=== PATIENT | female | born 1955 | race Two or more races ===

== ENCOUNTER → 2020-05-02 | Outpatient (CLI) | payer BC, MEDICARE ==
[~2020-05-02] MED LIST: ALBUTEROL SULFATE 0.083% NEB 2.5 MG/3 ML AMPUL NEB ONE
== END ==
LOC: RT 08:11
PROVIDERS: ATTEND Physician Assistant
DX: J44.9 Chronic obstructive pulmonary disease, unspecified (principal); R06.02 Shortness of breath
CPT/HCPCS: 94060; 94729